=== PATIENT | female | born 1965 | race Caucasian/White ===

== ENCOUNTER 2018-11-17 12:29 | Emergency (ER) | payer MEDICARE ==
[~2018-11-17] VITALS: Ht 165.1 cm; Wt 68.0 kg
[2018-11-17 13:10] VITALS: BP 123/71
== END 2018-11-17 14:48 | disposition home or self-care (01) ==
LOC: ED 14:36
DX: S70.01XA Contusion of right hip, initial encounter (principal); S80.12XA Contusion of left lower leg, initial encounter; I10 Essential (primary) hypertension; E78.00 Pure hypercholesterolemia, unspecified; F32.9 Major depressive disorder, single episode, unspecified; F17.200 Nicotine dependence, unspecified, uncomplicated; Y04.8XXA Assault by other bodily force, initial encounter; Y93.89 Activity, other specified; Y92.410 Unspecified street and highway as the place of occurrence of the external cause; Y99.8 Other external cause status
CPT/HCPCS: 73590; 90471; 90715; 96372; 99283; J1885; 96367